=== PATIENT | male | born 1985 | race African-American/Black ===

== ENCOUNTER 2024-03-31 13:55 | Emergency (ER) | payer OTHER, SELFPAY ==
[2024-03-31 14:11] VITALS: BP 158/96
[2024-03-31 15:04] VITALS: BMI 30.1
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
== END 2024-03-31 16:31 | disposition home or self-care (01) ==
LOC: EMR 13:55
PROVIDERS: EMERGENCY PHYSICIAN Emergency Medicine
DX: S16.1XXA Strain of muscle, fascia and tendon at neck level, initial encounter (principal); M54.50 Low back pain, unspecified; R51.9 Headache, unspecified; V49.40XA Driver injured in collision with unspecified motor vehicles in traffic accident, initial encounter; Y93.89 Activity, other specified; Y92.410 Unspecified street and highway as the place of occurrence of the external cause; Y99.0 Civilian activity done for income or pay
CPT/HCPCS: 99284; 72040; 72100; 93005